=== PATIENT | female | born 1960 | race Caucasian/White ===

== ENCOUNTER 2025-03-09 18:10 | Emergency (ER) | payer MEDICARE, BC, SELFPAY ==
[2025-03-09 18:14] VITALS: BP 149/90
[2025-03-09] MEDS: MOTRIN 600 MG PO (19:02)
--- NOTE | 2025-03-09 19:10 | ED.GENMED ---
History of Present Illness
General
Chief Complaint: Musculo-Skeletal Complaint
Source: patient
Exam Limitations: none
Time Seen by Provider: 03/09/25 18:34
Nursing documentation reviewed up to this point in time: agreed with except (Injuries to the right knee not the left knee)
History of Present Illness
History of Present Illness:
Patient is a 64-year-old female complaining of right knee pain and injury. This morning she stepped off a ladder and felt and heard a pop in her right knee. She denies any other injury. She did take Tylenol. She is unable to bear weight. No
other injuries. She denies hitting her head. She is not on blood thinners.
Past History
Past History
ED Past Medical History: None
ED Past Surgical History: (3 )
Social History
Tobacco: Former smoker
Alcohol: Occasional
Personal:
Living: with family
Family History
Family History: Negative Diabetes, Hypertension, Early CAD, Asthma or Cancer
Phy Exam
General Physical Exam
General Presentation: no apparent distress
General age: appears stated age
General Skin: warm and dry
General Habitus: normal
General Mental: alert
General Hydration: appears well hydrated
Neurological Exam
Neurological Exam: alert and oriented x3
Musculoskeletal Exam
Musculoskeletal Exam: other (Right lower extremity strong pulses right knee with obvious swelling tender throughout; decreased range of motion due to pain)
Skin Exam
Skin Exam: normal color and warm/dry
Psychiatric Exam
Psychiatric Exam: normal mood/affect
Course
Orders/Labs/Results
Orders:
Orders
03/09/25 18:16
Knee, Right 4 or More Views [CR Knee- Right 4 Or More View*] Urgent
Comment:
Reason For Exam: fall, injury
03/09/25 18:50
Ibuprofen [Motrin] 600 mg PO NOW STA
03/09/25 19:02
Ibuprofen [Motrin] 600 mg .ROUTE .STK-MED ONE
03/09/25 19:09
CT Lower Ext W/o Iv Cont Rt Urgent
Comment:
Reason For Exam: knee injury
03/09/25 21:25
Knee Immobilizer Right-Treatme ONCE
03/09/25 21:41
Crutches-Treatment ONCE
Oxycodone [Roxicodone] 5 mg PO NOW STA
Vital Signs
Initial and Last Documented VS:
Initial Vital Signs
Temp Pulse Resp BP Pulse Ox
98 F 122 16 149/90 96
03/09/25 18:14 03/09/25 18:14 03/09/25 18:14 03/09/25 18:14 03/09/25 18:14
Last Documented Vital Signs
Temp Pulse Resp BP Pulse Ox
98 F 91 16 122/74 98
03/09/25 18:14 03/09/25 20:00 03/09/25 20:00 03/09/25 20:00 03/09/25 20:00
MDM/Problems Addressed
MDM/Problems Addressed:
Patient is a 64-year-old female who injured her right knee sustaining an acute fracture plateau. There is comminution and articular surface depression. Case reviewed orthopedics .
CAT scan recommended .
CAT scan does show comminuted fracture extending to the involve the lateral tibial spine with mild depression of the major fracture fragment. Will DC with immobilizer walker and nonweightbearing until outpatient follow-up
*Radiology
Radiology exam reviewed: radiology read reviewed
*Pulse Oximetry
SaO2: 96
Oxygen Mode of Delivery: Room air
Patient hypoxic: no
*Critical Care Note
Total Time (30-74mins, 75-104mins- exclusive of procedures): Not Applicable
Patient Management
Discussion with other providers: Clinical Document Improvement Educator (ortho DR Smart)
ED Attending Note
-
Portions of this chart may have been created with voice recognition software.� Occasional wrong word or��sound alike� substitutions may have occurred due to the inherent limitations of voice recognition software.
Discharge Plan
Departure
Patient Disposition: Home (Routine Discharge)
Date of Disposition: 03/09/25
Time of Disposition: 21:42
Patient with high blood pressure during this ER visit?: Yes
Condition: Fair
Covid-19: Not Applicable
Discharge Problem:
Closed fracture of tibial plateau
Instructions: Lower leg fracture, Knee Immobilizer (DC), BLOOD PRESSURE
Prescriptions:
New
oxycodone 5 mg tablet
5 mg PO Q6H PRN (Reason: Pain) Qty: 10 0RF
No Action
No Meds
methylprednisolone 4 MG tablet
4 mg PO DAILY Qty: 7 0RF
Referrals:
Eleno Smart MD [Active, Orthopedics]
Aubrey Bone MD [Family Provider, Internal Medicine]
Activity Restrictions/Additional Instructions:
As discussed wear immobilizer for support; do not bear weight on knee. You have either crutches ,your walker or your wheelchair. Keep elevated as much as possible .
you may ice the affected area for the next 24 hours 20 minutes at a time several times a day. Ibuprofen alternating with Tylenol as needed for pain however oxycodone, and narcotic medicine was sent to your pharmacy take only as directed. No
driving or drinking alcohol or taking this medicine. This medicine is a narcotic and will cause constipation be sure to continue laxatives, stool softeners. Follow-up with orthopedics in the 2 to 3 days. Please call Tuesday to make an appointment
Interventions
Interventions:
*Risk Screen - Suicide Last Done: 03/09/25 18:17
*Neglect/Abuse Screening Last Done: 03/09/25 18:17
*ED- Fall Risk Assessment Last Done: 03/09/25 20:06
ED-Musculoskeletal Assessment Last Done: 03/09/25 20:06
Discharge Date and Time
Print Language: TELUGU
[2025-03-09 20:00] VITALS: BP 122/74
[2025-03-09] MEDS: ROXICODONE 5 MG PO (21:55)
== END 2025-03-09 21:57 | disposition home or self-care (01) ==
LOC: EMR 18:10
PROVIDERS: EMERGENCY PHYSICIAN Emergency Medicine; FAMILY PHYSICIAN Internal Medicine
DX: S82.141A Displaced bicondylar fracture of right tibia, initial encounter for closed fracture (principal); X58.XXXA Exposure to other specified factors, initial encounter; R03.0 Elevated blood-pressure reading, without diagnosis of hypertension; Z87.891 Personal history of nicotine dependence
CPT/HCPCS: 99284; 73564; 73700

== ENCOUNTER → 2025-03-18 13:10 | Outpatient (REF) | payer MEDICARE, BC, SELFPAY ==
[2025-03-18 14:07] LABS: Hematocrit 41.5 % (37.0-47.0); Hemoglobin 13.9 g/dL (12.0-16.0); Mean Corp Hgb Conc. 33.5 g/dL (33.0-37.0); Mean Corpuscular Volume 90.0 fL (81.0-99.0); Nucleated Red Blood Cells % 0 %; Platelet Count 341 10^3/uL (130-400); Red Cell Dist. Width 12.7 % (11.5-14.5)
[2025-03-18 14:40] LABS: Blood Urea Nitrogen 8 mg/dl (7-17); Calcium 10.0 mg/dl (8.4-10.2); Carbon Dioxide 30 mmol/L (22-30); Chloride 103 mmol/L (98-107); Glucose 104 mg/dl (70-99); Potassium 4.3 mmol/L (3.5-5.1); Sodium 140 mmol/L (135-145); eGFR > 60.00
== END ==
LOC: SDSPAT 13:10
PROVIDERS: ATTENDING PHYSICIAN Orthopaedic Surgery; FAMILY PHYSICIAN Dermatology
DX: M25.561 Pain in right knee (principal)
CPT/HCPCS: 36415; 80048; 85025; 93005